=== PATIENT | male | born 1990 | race African-American/Black ===

== ENCOUNTER 2019-10-01 16:02 | Emergency (ER) | payer OTHER ==
--- NOTE | 2019-10-01 17:07 | ER ---
Nurse's Notes [facility] Name: Sreekanth Dodson Age: 29 yrs Sex: Male : 1990 Arrival Date: 10/01/2019 Time: 16:04 Bed 23 Private MD: Diagnosis: Acute upper respiratory infection, unspecified Presentation: 10/01 16:08 Presenting complaint: Patient states: Headache, cold sweats, body aches, sore throat, aj1 cough, congestion for the past couple days. Transition of care: patient was not received from another setting of care. Onset of symptoms was 2019. Risk Assessment: Do you want to hurt yourself or someone else? Patient reports no desire to harm self or others. Initial Sepsis Screen: Does the patient meet any 2 criteria? No. Patient's initial sepsis screen is negative. Does the patient have a suspected source of infection? Yes: Productive cough/pneumonia. Care prior to arrival: None. 16:08 Method Of Arrival: Ambulatory aj 16:08 Acuity: SABINA 4 aj1 Triage Assessment: 16:10 General: Appears in no apparent distress. comfortable, Behavior is calm, cooperative, aj1 appropriate for age. Pain: Complains of pain in forehead. Pain: Pain currently is 8 out of 10 on a pain scale. EENT: Reports nasal congestion nasal discharge. Neuro: Level of Consciousness is awake, alert, obeys commands. Cardiovascular: Patient's skin is warm and dry. Respiratory: Reports cough that is hacking, persistent Airway is patent Respiratory effort is even, unlabored, Respiratory pattern is regular, symmetrical. 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 - Social history:: Smoking status: Patient/guardian denies using tobacco. - Ebola Screening: : Patient denies travel to an Ebola-affected area in the 21 days before illness onset. Screenin:18 Abuse screen: Denies threats or abuse. Denies injuries from another. Nutritional mg2 screening: No deficits noted. Tuberculosis screening: No symptoms or risk factors identified. Fall Risk None identified. Assessment: 16:18 General: Appears in no apparent distress. comfortable, Behavior is calm, cooperative. mg2 Pain: Complains of pain in whole body. Neuro: Level of Consciousness is awake, alert, obeys commands, Oriented to person, place, time, situation. Cardiovascular: Capillary refill < 3 seconds Patient's skin is warm and dry. Respiratory: Airway is patent Respiratory effort is even, unlabored, Respiratory pattern is regular, symmetrical. Respiratory: Reports cough that is. GI: No signs and/or symptoms were reported involving the gastrointestinal system. : No signs and/or symptoms were reported regarding the genitourinary system. EENT: Reports nasal congestion. Derm: Skin is intact, is healthy with good turgor, Skin is pink, warm \T\ dry. normal. Musculoskeletal: Circulation, motion, and sensation intact. Capillary refill < 3 seconds. Vital Signs: 16:10 BP 141 / 90; Pulse 86; Resp 18; Temp 98.6; Pulse Ox 99% on R/A; Weight 106.59 kg (R); aj1 Height 6 ft. 1 in. (185.42 cm) (R); Pain 8/10; 17:10 BP 135 / 78; Pulse 80; Resp 18; Temp 98; Pulse Ox 100% on R/A; mg2 16:10 Body Mass Index 31.00 (106.59 kg, 185.42 cm) aj1 ED Course: 16:04 Patient arrived in ED. as 16:09 Triage completed. aj1 16:10 Arm band placed on Patient placed in an exam room. aj1 16:12 Robin Samayoa, RN is Primary Nurse. mg2 16:12 Keri Oseguera FNP-C is [facility]. kb 16:12 Srinivasan Monk MD is Attending Physician. kb 16:18 No provider procedures requiring assistance completed. Flu and/or RSV swab sent to lab. mg2 Patient did not have IV access during this emergency room visit. 16:19 Patient has correct armband on for positive identification. mg2 17:07 Throat Culture Sent. jp3 Administered Medications: No medications were administered Outcome: 17:06 Discharge ordered by . kb 17:33 Discharged to home ambulatory. mg2 17:33 Condition: good 17:33 Discharge instructions given to patient, Instructed on discharge instructions, follow up and referral plans. Demonstrated understanding of instructions, follow-up care. 17:33 Patient left the ED. mg2 Signatures: Keri Oseguera, FINESSE-C DISPATCHER SERVICE CHIEF-Mitra Infante RN RN aj1 Marilyn Jones Michele, RN RN mg2 Teddy Charles jp3
--- NOTE | 2019-10-01 17:07 | EDPHYS ---
Physician Documentation [facility] Name: Sreekanth Dodson Age: 29 yrs Sex: Male : 1990 Arrival Date: 10/01/2019 Time: 16:04 Bed 23 Private MD: ED Physician Srinivasan Monk HPI: 10/01 16:24 This 29 yrs old Black Male presents to ER via Ambulatory with complaints of Flu kb Symptoms. 16:24 The patient or guardian reports cough, that is intermittent, described as mild, with no kb sputum, flu symptoms, low-grade fever, myalgias. Onset: The symptoms/episode began/occurred 2 day(s) ago. Severity of symptoms: At their worst the symptoms were mild, moderate, in the emergency department the symptoms are unchanged. Modifying factors: The symptoms are alleviated by nothing, the symptoms are aggravated by nothing. Associated signs and symptoms: Pertinent positives: fever, rhinorrhea, sore throat. The patient has not experienced similar symptoms in the past. The patient has not recently seen a physician. 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 - Social history:: Smoking status: Patient/guardian denies using tobacco. - Ebola Screening: : Patient denies travel to an Ebola-affected area in the 21 days before illness onset. ROS: 16:23 Neck: Negative for injury, pain, and swelling, Cardiovascular: Negative for chest pain, kb palpitations, and edema, Abdomen/GI: Negative for abdominal pain, nausea, vomiting, diarrhea, and constipation, Back: Negative for injury and pain, MS/Extremity: Negative for injury and deformity, Skin: Negative for injury, rash, and discoloration. 16:23 Constitutional: Positive for body aches, chills, fatigue, fever, malaise. 16:23 ENT: Positive for rhinorrhea, sinus congestion, sore throat. 16:23 Respiratory: Positive for cough, Negative for dyspnea on exertion, hemoptysis, orthopnea, pleurisy, shortness of breath, sputum production, wheezing. 16:23 Neuro: Positive for headache. Exam: 16:23 Constitutional: This is a well developed, well nourished patient who is awake, alert, kb and in no acute distress. Head/Face: Normocephalic, atraumatic. ENT: Nares patent. No nasal discharge, no septal abnormalities noted. Tympanic membranes are normal and external auditory canals are clear. Oropharynx with no redness, swelling, or masses, exudates, or evidence of obstruction, uvula midline. Mucous membranes moist. Neck: Trachea midline, no thyromegaly or masses palpated, and no cervical lymphadenopathy. Supple, full range of motion without nuchal rigidity, or vertebral point tenderness. No Meningismus. Chest/axilla: Normal chest wall appearance and motion. Nontender with no deformity. No lesions are appreciated. Cardiovascular: Regular rate and rhythm with a normal S1 and S2. No gallops, murmurs, or rubs. Normal PMI, no JVD. No pulse deficits. Respiratory: Lungs have equal breath sounds bilaterally, clear to auscultation and percussion. No rales, rhonchi or wheezes noted. No increased work of breathing, no retractions or nasal flaring. Abdomen/GI: Soft, non-tender, with normal bowel sounds. No distension or tympany. No guarding or rebound. No evidence of tenderness throughout. Skin: Warm, dry with normal turgor. Normal color with no rashes, no lesions, and no evidence of cellulitis. MS/ Extremity: Pulses equal, no cyanosis. Neurovascular intact. Full, normal range of motion. Neuro: Awake and alert, GCS 15, oriented to person, place, time, and situation. Cranial nerves II-XII grossly intact. Motor strength 5/5 in all extremities. Sensory grossly intact. Cerebellar exam normal. Normal gait. Vital Signs: 16:10 BP 141 / 90; Pulse 86; Resp 18; Temp 98.6; Pulse Ox 99% on R/A; Weight 106.59 kg (R); aj1 Height 6 ft. 1 in. (185.42 cm) (R); Pain 8/10; 17:10 BP 135 / 78; Pulse 80; Resp 18; Temp 98; Pulse Ox 100% on R/A; mg2 16:10 Body Mass Index 31.00 (106.59 kg, 185.42 cm) aj1 MDM: 16:12 Patient medically screened. kb 16:23 Data reviewed: vital signs, nurses notes. Data interpreted: Pulse oximetry: on room air kb is 99 %. Interpretation: normal. 17:06 Counseling: I had a detailed discussion with the patient and/or guardian regarding: the kb historical points, exam findings, and any diagnostic results supporting the discharge/admit diagnosis, lab results, the need for outpatient follow up, a family practitioner, to return to the emergency department if symptoms worsen or persist or if there are any questions or concerns that arise at home. 10/01 16:12 Order name: Flu; Complete Time: 16:41 kb 10/01 16:41 Order name: Strep; Complete Time: 17:06 kb 10/01 17:06 Order name: Throat Culture EDMS Administered Medications: No medications were administered Disposition: 17:34 Co-signature as Attending Physician, Srinivasan Monk MD. rn Disposition: 10/01/19 17:06 Discharged to Home. Impression: Acute upper respiratory infection, unspecified. - Condition is Stable. - Discharge Instructions: Upper Respiratory Infection, Pediatric, Viral Respiratory Infection, [id number]. - Medication Reconciliation Form, Thank You Letter, Antibiotic Education, Prescription Opioid Use form. - Follow up: Emergency Department; When: As needed; Reason: Worsening of condition. Follow up: Private Physician; When: 2 - 3 days; Reason: Recheck today's complaints, Continuance of care, Re-evaluation by your physician. Signatures: Dispatcher [employer] EDMS Keri Oseguera, WILLIEC PROCESS COACH-Mitra Infante RN RN aj1 Srinivasan Monk MD MD rn Gardose, Michele, RN RN mg2 Corrections: (The following items were deleted from the chart) 17:33 17:06 10/01/2019 17:06 Discharged to Home. Impression: Acute upper respiratory mg2 infection, unspecified. Condition is Stable. Forms are Medication Reconciliation Form, Thank You Letter, Antibiotic Education, Prescription Opioid Use. Follow up: Emergency Department; When: As needed; Reason: Worsening of condition. Follow up: Private Physician; When: 2 - 3 days; Reason: Recheck today's complaints, Continuance of care, Re-evaluation by your physician. kb
[2019-10-01 18:30] VITALS: BP 135/78; TEMP 98; O2SAT 100
== END 2019-10-01 17:33 | disposition home or self-care (01) ==
LOC: ER 16:02
DX: J06.9 Acute upper respiratory infection, unspecified (principal); C95.01 Acute leukemia of unspecified cell type, in remission
CPT/HCPCS: 87070; 87081; 87804; 99283

== ENCOUNTER → 2023-12-04 | Emergency (ER) | payer BC ==
--- NOTE | 2023-12-04 18:22 | EDPHYS ---
Physician Documentation [facility] Name: Sreekanth Dodson Age: 33 yrs Sex: Male : 1990 Arrival Date: 12/04/2023 Time: 17:50 Bed IW1 Private MD: ED Physician Orion Frye HPI: 12/03 21:44 This 33 yrs old Black Male presents to ER via Ambulatory with complaints of Possible kb staph infection. 21:44 Patient is a 33-year-old male who came in to be tested for MRSA. States his 5-year-old kb recently developed a rash and fever, was taken to [facility] and his blood cultures grew MRSA so he was told he needed to get the rest of the family checked. Denies fever or illness. Reports small wounds to scalp and bilateral arms without redness swelling or drainage.. Historical: - Allergies: 18:33 No Known Allergies; aa5 - PMHx: 18:33 acute lymphoblastic leukemia- in remission; aa5 ROS: 21:43 Constitutional: As per HPI kb Exam: 21:43 Constitutional: This is a well developed, well nourished patient who is awake, alert, kb and in no acute distress. Head/Face: Normocephalic, atraumatic. ENT: Moist Mucous membranes Cardiovascular: Regular rate Respiratory: Respirations even and unlabored. No increased work of breathing. Talking in full sentences Abdomen/GI: Soft, non-tender. No distention MS/ Extremity: Pulses equal, no cyanosis. Neurovascular intact. Full, normal range of motion. Neuro: Awake and alert, GCS 15, oriented to person, place, time, and situation. Moves all extremities. Normal gait. 21:43 Skin: scabbed over wounds to scalp and bilateral arms. Vital Signs: 18:33 BP 130 / 88; Pulse 88; Resp 18 S; Temp 97.5(TE); Pulse Ox 99% on R/A; aa5 18:33 Weight 99.2 kg (M); aa5 MDM: 18:03 Patient medically screened. kb 21:43 Differential Diagnosis impetigo, skin infection. Data reviewed: vital signs, nurses kb notes. Counseling: I had a detailed discussion with the patient and/or guardian regarding the historical points, exam findings, and any diagnostic results supporting the discharge/admit diagnosis, the need for outpatient follow up, a family practitioner, to return to the emergency department if symptoms worsen or persist or if there are any questions or concerns that arise at home. Administered Medications: No medications were administered Disposition: 12/04 08:22 Co-signature as Attending Physician, Orion Frye MD I agree with the assessment and cp3 plan of care. Disposition Summary: 12/04/23 18:21 Discharge Ordered Notes: Location: Home kb Condition: Stable kb Diagnosis - Scalp Laceration/ Open wound of scalp kb Followup: kb - With: Emergency Department - When: As needed - Reason: Worsening of condition Followup: kb - With: Private Physician - When: 2 - 3 days - Reason: Recheck today's complaints, Continuance of care, Re-evaluation by your physician Discharge Instructions: - Discharge Summary Sheet kb - Wound Infection, [id number] kb - Wound Care, Adult kb Forms: - Medication Reconciliation Form kb - Thank You Letter kb - Antibiotic Education kb - Prescription Opioid Use kb - Patient Portal Instructions kb - Leadership Thank You Letter kb Prescriptions: - mupirocin 2 % Topical ointment - apply 1 application TOPICAL route 2 times per day; 1 unit; Refills: 0, Product kb Selection Permitted Signatures: Keri Oseguera, WILLIEC Orion Mckeon MD MD cp3 Yanira Carrillo, RN RN aa5
--- NOTE | 2023-12-04 18:48 | ER ---
Nurse's Notes [facility] Name: Sreekanth Dodson Age: 33 yrs Sex: Male : 1990 Arrival Date: 12/04/2023 Time: 17:50 Bed IW1 Private MD: Diagnosis: Scalp Laceration/ Open wound of scalp Presentation: 12/03 18:33 Chief complaint: Pt reports multiple sores to lydia arms, states "my son is in the [facility] with MRSA". 18:33 Coronavirus screen: At this time, the client does not indicate any symptoms associated [facility] with coronavirus-19. Ebola Screen: Patient denies travel to an Ebola-affected area in the 21 days before illness onset. Initial Sepsis Screen: Does the patient meet any 2 criteria? No. Patient's initial sepsis screen is negative. Does the patient have a suspected source of infection? No. Patient's initial sepsis screen is negative. Risk Assessment: Do you want to hurt yourself or someone else? Patient reports no desire to harm self or others. Onset of symptoms was November 2023. 18:33 Acuity: SABINA 5 aa5 18:33 Method Of Arrival: Ambulatory aa5 Triage Assessment: 18:33 General: Appears comfortable, Behavior is calm, cooperative. Pain: Denies pain. Neuro: aa5 Level of Consciousness is awake, alert, obeys commands, Oriented to person, place, time, situation. Respiratory: Airway is patent Respiratory effort is even, unlabored, Respiratory pattern is regular, symmetrical. Derm: Skin is dry, Skin is normal, Skin temperature is warm. Historical: - Allergies: 18:33 No Known Allergies; aa5 - PMHx: 18:33 acute lymphoblastic leukemia- in remission; aa5 Vital Signs: 18:33 BP 130 / 88; Pulse 88; Resp 18 S; Temp 97.5(TE); Pulse Ox 99% on R/A; aa5 18:33 Weight 99.2 kg (M); aa5 ED Course: 18:00 Patient arrived in ED. mg5 18:02 K[facility]gu[facility] F[facility]-C [facility]. kb 18:02 Orion Frye MD is Attending Physician. kb 18:33 Arm band placed on. aa5 18:40 No provider procedures requiring assistance completed. Patient did not have IV access aa5 during this emergency room visit. 18:50 Triage completed. aa5 Administered Medications: No medications were administered Outcome: 18:21 Discharge ordered by . yessenia 18:40 Discharged to home ambulatory, aa5 18:40 Condition: stable 18:40 Discharge instructions given to patient, Instructed on discharge instructions, follow up and referral plans. medication usage, Demonstrated understanding of instructions, follow-up care, medications, Prescriptions given X 1, 18:47 Patient left the ED. aa5 Signatures: Keri Oseguera FNP-C FNP-Yanira Mckeon, RN RN aa5 Ingrid Kriby mg5
[2023-12-04 19:47] VITALS: BP 130/88; TEMP 97.5; O2SAT 99
== END ==
LOC: ER 17:50
DX: S01.01XA Laceration without foreign body of scalp, initial encounter (principal)
CPT/HCPCS: 99283

== ENCOUNTER 2024-05-30 06:42 | Emergency (ER) | payer BC ==
--- OUTSIDE RECORDS SUMMARY | 2024-05-30 06:46 | XMS REPORT | Continuity of Care Document ---
Author Name Unknown Address [address] [place] [address]. [address] [place] [address] [facility] [address] [facility] [address] [place] [address] Care Team Providers Care Ethics Manager Name Role Phone [phone] Primary Care Physician Unavailab le Allergies, Adverse Reactions, Alerts Allergy Name Allergy Type Status Severity Reaction(s) Onset Date Inactive Date Treating Clinician Comments Source NO KNOWN DRUG ALLERGIE S Drug Class Active 12-29 00:00: 00 MD Maki disla NO KNOWN DRUG ALLERGIE S Drug Class Active 12-29 00:00: 00 MD Maki disla
[2024-05-30 07:57] LABS: Absolute Lymphocytes (CBC) 1.1 K/uL (0.7-4.9); Absolute Monocytes 0.7 K/uL (0.1-1.3); Absolute Neutrophil 6.7 K/uL (1.8-8.0); Basophils % 0.2 % (0-1.3); Eosinophils % 0.1 % (0-4.4); Hematocrit 40.4 % (39.6-49.0); Hemoglobin 13.8 g/dL (13.6-17.9); Lymphocytes % 13.2 % (15.3-44.8); MCH 34.3 pg (27.0-35.0); MCHC 34.2 g/dL (32.0-36.0); MCV 100.4 fL (80-100); MPV 7.4 fL (7.6-11.3); Monocytes % 7.7 % (3.3-12.3); Neutrophils % 78.8 % (41.7-73.7); Platelets 209 thou/uL (152-406); RBC Red Blood Cell Count 4.02 M/uL (4.33-5.43); Red Cell Distribution Width 12.4 % (12.1-15.2)
[2024-05-30 08:12] LABS: Albumin 3.5 g/dL (3.4-5.0); Albumin/Globulin Ratio 0.8 (1.1-1.8); Anion Gap 8.7 mEq/L (5.0-15.0); Globulin 4.5 g/dL (2.3-3.5); Potassium 3.7 mEq/L (3.5-5.1)
[2024-05-30 08:25] LABS: SARS-CoV-2 Antigen CONTROL BLUE LINE VIS/BG OK; SARS-CoV-2 Antigen Rapid Res Negative (Negative)
--- NOTE | 2024-05-30 08:27 | RAD REPORT ---
EXAM DESCRIPTION: Gonzalo Single View05/30/2024 7:56 am CLINICAL HISTORY: Congestion COMPARISON: 2022 FINDINGS: The lungs appear clear of acute infiltrate. The heart is mildly enlarged IMPRESSION: No acute abnormalities displayed
--- NOTE | 2024-05-30 08:45 | EDPHYS ---
Physician Documentation [facility] Name: Sreekanth Dodson Age: 34 yrs Sex: Male : 1990 Arrival Date: 05/30/2024 Time: 06:42 Bed 6 Private MD: ED Physician Anastacio Collins HPI: 05/30 07:23 This 34 yrs old Black Male presents to ER via Ambulatory with complaints of Flu sp3 Symptoms, Congestion, Sore Throat. 07:23 34-year-old male with a history of a LL with no evidence of disease for 10 years sp3 formally treated at [facility] now presents to the ED with chief complaint body aches, subjective fever, dry cough and "bone pain". Patient denies any production on cough, chest pain, back pain, abdominal pain, nausea, vomiting, diarrhea, known sick contacts, travel history, prolonged immobilization, or any other signs or symptoms on ROS at this time. He also endorses no weight loss or night sweats.. 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 - Infectious Disease History:: Denies. - Social history:: Smoking status: Patient denies any tobacco usage or history of. ROS: 07:25 Eyes: Negative for injury, pain, redness, and discharge, Neck: Negative for injury, sp3 pain, and swelling, Cardiovascular: Negative for chest pain, palpitations, and edema, Abdomen/GI: Negative for abdominal pain, nausea, vomiting, diarrhea, and constipation, Back: Negative for injury and pain, MS/Extremity: Negative for injury and deformity, Skin: Negative for injury, rash, and discoloration, Neuro: Negative for headache, weakness, numbness, tingling, and seizure, Psych: Negative for depression, anxiety, suicide ideation, homicidal ideation, and hallucinations, Endocrine: Negative for neck swelling, polydipsia, polyuria, polyphagia, and marked weight changes, 07:25 All other systems are negative, Exam: 07:25 Constitutional: This is a well developed, well nourished patient who is awake, alert, sp3 and in no acute distress. Head/Face: Normocephalic, atraumatic. Eyes: Pupils equal round and reactive to light, extra-ocular motions intact. Lids and lashes normal. Conjunctiva and sclera are non-icteric and not injected. Cornea within normal limits. Periorbital areas with no swelling, redness, or edema. ENT: Nares patent. No nasal discharge, no septal abnormalities noted. External auditory canals are clear. Oropharynx with no redness, swelling, or masses, exudates, or evidence of obstruction, uvula midline. Mucous membranes moist. Neck: Trachea midline, no thyromegaly or masses palpated, and no cervical lymphadenopathy. Supple, full range of motion without nuchal rigidity, or vertebral point tenderness. No Meningismus. Chest/axilla: Normal chest wall appearance and motion. Nontender with no deformity. No lesions are appreciated. Cardiovascular: Regular rate and rhythm with a normal S1 and S2. No gallops, murmurs, or rubs. Normal PMI, no JVD. No pulse deficits. Respiratory: Lungs have equal breath sounds bilaterally, clear to auscultation and percussion. No rales, rhonchi or wheezes noted. No increased work of breathing, no retractions or nasal flaring. Abdomen/GI: Soft, non-tender, with normal bowel sounds. No distension or tympany. No guarding or rebound. No evidence of tenderness throughout. Back: No spinal tenderness. No costovertebral tenderness. Full range of motion. Skin: Warm, dry with normal turgor. Normal color with no rashes, no lesions, and no evidence of cellulitis. MS/ Extremity: Pulses equal, no cyanosis. Neurovascular intact. Full, normal range of motion. Neuro: Awake and alert, GCS 15, oriented to person, place, time, and situation. Cranial nerves II-XII grossly intact. Motor strength 5/5 in all extremities. Sensory grossly intact. Cerebellar exam normal. Normal gait. Psych: Awake, alert, with orientation to person, place and time. Behavior, mood, and affect are within normal limits. Vital Signs: 06:58 BP 134 / 81; Pulse 88; Resp 16; Temp 98.2; Pulse Ox 99% on R/A; Weight 97.52 kg; Height ss 6 ft. 0 in. ; Pain 9/10; 07:54 BP 121 / 79; Pulse 84; Resp 16; Pulse Ox 100% ; dd2 08:57 BP 126 / 75; Pulse 80; Resp 16; Temp 98.3(O); Pulse Ox 99% ; dd2 06:58 Body Mass Index 29.16 (97.52 kg, 182.88 cm) ss 06:58 Pain Scale: Adult ss MDM: 07:04 Patient medically screened. sp3 07:25 Data reviewed: vital signs, nurses notes, lab test result(s), radiologic studies. ED sp3 course: 34-year-old male with history available now with viral upper respiratory infection type symptoms. Differential diagnosis includes viral illness, bronchitis, bacterial pneumonia, COVID-19, influenza, and to a lesser degree recurrence of leukemia. Given this broad differential including his ALL history, workup will include swabs, chest x-ray and laboratory values including CBC and CRP. Disposition probable discharge with antibiotics to cover secondary infection versus antibiotics to cover primary infection. Consider antiviral agent if swabs are positive.. 08:44 ED course: Full workup negative including chest x-ray. No leukocytosis noted given sp3 history. Will place on Levaquin p.o. and discharged home with PCP follow-up.. 05/30 06:54 Order name: Strep ec2 05/30 06:54 Order name: Influenza Screen (a \\T\\ B); Complete Time: 08:27 ec2 05/30 06:54 Order name: SARS RAPID; Complete Time: 08:27 ec2 05/30 07:22 Order name: CBC with Diff; Complete Time: 08:03 sp3 05/30 07:22 Order name: CMP; Complete Time: 08:27 sp3 05/30 07:22 Order name: Lipase; Complete Time: 08:27 sp3 05/30 07:22 Order name: CRP; Complete Time: 08:27 sp3 05/30 08:32 Order name: Throat Culture EDNH 05/30 07:05 Order name: CXR XRAY; Complete Time: 08:43 sp3 05/30 07:22 Order name: IV Saline Lock; Complete Time: 07:48 sp3 05/30 07:22 Order name: Labs collected and sent; Complete Time: 07:48 sp3 Administered Medications: No medications were administered Disposition Summary: 05/30/24 08:44 Discharge Ordered Notes: Location: Home sp3 Condition: Stable sp3 Diagnosis - Viral syndrome, prophylaxis for secondary bacterial infection given leukemia historysp3 Followup: sp3 - With: Private Physician - When: Upon discharge from the Emergency Department - Reason: Continuance of care Discharge Instructions: - Discharge Summary Sheet sp3 - Viral Illness, Adult sp3 Forms: - Medication Reconciliation Form sp3 - Antibiotic Education sp3 - Prescription Opioid Use sp3 - Patient Portal Instructions sp3 - Leadership Thank You Letter sp3 - Work release form dd2 Prescriptions: - levofloxacin 500 mg Oral tablet - take 1 tablet ORAL route once daily for 7 days; 7 tablet; Refills: 0, Product sp3 Selection Permitted Signatures: Dispatcher [employer] EDMS Lisa Haile RN RN ss Anastacio Collins MD MD sp3 Corrections: (The following items were deleted from the chart) 06:54 06:54 Influenza Screen (A \\T\\ B)+BA.LAB.BRZ ordered. EDMS EDMS 06:54 06:54 SARS-COV-2 Antigen Rapid+I.LAB.BRZ ordered. EDMS EDMS 06:54 06:54 Group A Streptococcus Rapid Sc+BA.LAB.BRZ ordered. EDMS EDMS 07:05 07:05 Chest Single View+RAD.RAD.BRZ ordered. EDMS EDMS 07:23 07:23 CBC+H.LAB.BRZ ordered. EDMS EDMS 07:23 07:23 COMPREHENSIVE METABOLIC PANEL+C.LAB.BRZ ordered. EDMS EDMS 07:23 07:23 LIPASE+C.LAB.BRZ ordered. EDMS EDMS 07:23 07:23 BLOOD CULTURE*+BA.LAB.BRZ ordered. EDMS EDMS 07:23 07:23 C-REACTIVE PROTEIN+C.LAB.BRZ ordered. EDMS EDMS
--- NOTE | 2024-05-30 08:45 | ER ---
Nurse's Notes [facility] Name: Sreekanth Dodson Age: 34 yrs Sex: Male : 1990 Arrival Date: 05/30/2024 Time: 06:42 Bed 6 Private MD: Diagnosis: Viral syndrome, prophylaxis for secondary bacterial infection given leukemia history Presentation: 05/30 06:58 Chief complaint: Patient states: chills, fatigue sore throat and body aches that began ss Chan night. Coronavirus screen: Client denies travel out of the [place] in the last 14 days. Ebola Screen: Patient denies exposure to infectious person. Patient denies travel to an Ebola-affected area in the 21 days before illness onset. Initial Sepsis Screen: Does the patient meet any 2 criteria? No. Patient's initial sepsis screen is negative. Does the patient have a suspected source of infection? No. Patient's initial sepsis screen is negative. Risk Assessment: Do you want to hurt yourself or someone else? Patient reports no desire to harm self or others. Onset of symptoms was May 26, 2024. 06:58 Method Of Arrival: Ambulatory ss 06:58 Acuity: SABINA 4 ss 07:36 Acuity: SABINA 3 iw Triage Assessment: 07:02 General: Appears in no apparent distress. comfortable, Behavior is calm, cooperative. ss Neuro: Level of Consciousness is awake, alert, obeys commands. Respiratory: Airway is patent Respiratory effort is even, unlabored, Respiratory pattern is regular, symmetrical. Derm: Skin is pink, warm \T\ dry. normal. 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 - Infectious Disease History:: Denies. - Social history:: Smoking status: Patient denies any tobacco usage or history of. Screenin:54 [facility] ED Fall Risk Assessment (Adult) History of falling in the last 3 months, dd2 including since admission No falls in past 3 months (0 pts) Confusion or Disorientation No (0 pts) Intoxicated or Sedated No (0 pts) Impaired Gait No (0 pts) Mobility Assist Device Used No (0 pt) Altered Elimination No (0 pt) Score/Fall Risk Level 0 - 2 = Low Risk Oriented to surroundings, Maintained a safe environment, Hourly rounding (assess needs \T\ fall precautionary measures) done. Abuse screen: Denies threats or abuse. Nutritional screening: No deficits noted. Tuberculosis screening: No symptoms or risk factors identified. Assessment: 07:54 General: Appears in no apparent distress. Behavior is calm, cooperative, appropriate dd2 for age. Pain: Complains of pain in Throat Pain currently is 4 out of 10 on a pain scale. Pain began 2-3 days ago. Neuro: No deficits noted. Level of Consciousness is awake, alert, obeys commands, Oriented to person, place, time, situation, Appropriate for age Moves all extremities. Cardiovascular: No deficits noted. Patient's skin is warm and dry. Respiratory: Reports cough that is dry, congestion Airway is patent Respiratory effort is even, unlabored, Respiratory pattern is regular, symmetrical, Breath sounds are clear bilaterally. GI: No deficits noted. No signs and/or symptoms were reported involving the gastrointestinal system. : No deficits noted. No signs and/or symptoms were reported regarding the genitourinary system. EENT: Throat is reddened has patchy exudate Reports difficulty swallowing since Wednesday nasal congestion since Wednesday nasal discharge that is watery. Derm: No deficits noted. No signs and/or symptoms reported regarding the dermatologic system. Musculoskeletal: No deficits noted. No signs and/or symptoms reported regarding the musculoskeletal system. Vital Signs: 06:58 BP 134 / 81; Pulse 88; Resp 16; Temp 98.2; Pulse Ox 99% on R/A; Weight 97.52 kg; Height ss 6 ft. 0 in. ; Pain 9/10; 07:54 BP 121 / 79; Pulse 84; Resp 16; Pulse Ox 100% ; dd2 08:57 BP 126 / 75; Pulse 80; Resp 16; Temp 98.3(O); Pulse Ox 99% ; dd2 06:58 Body Mass Index 29.16 (97.52 kg, 182.88 cm) 06:58 Pain Scale: Adult ss ED Course: 06:48 Patient arrived in ED. gm2 07:02 Triage completed. ss 07:02 Arm band placed on right wrist. ss 07:03 YAYA GA RN is Primary Nurse. dd2 07:04 Anastacio Collins MD is Attending Physician. sp3 07:45 Initial lab(s) drawn, by me, sent to lab. First set of blood cultures drawn COVID swab dd2 sent to lab. Flu and/or RSV swab sent to lab. Strep swab sent to lab. 07:48 CRP Sent. dd2 07:48 Blood Culture Adult (2) Sent. dd2 07:48 CBC with Diff Sent. dd2 07:48 CMP Sent. dd2 07:48 Lipase Sent. dd2 07:48 Strep Sent. dd2 07:48 SARS RAPID Sent. dd2 07:48 Influenza Screen (a \T\ B) Sent. dd2 07:48 Inserted saline lock: 22 gauge in right hand, using aseptic technique. Blood collected. dd2 Flushed with 10 mL NS Missed attempt(s): 20 gauge in right antecubital area. Bleeding controlled, band aid applied, catheter tip intact. 07:54 Patient has correct armband on for positive identification. Bed in low position. Call dd2 light in reach. Side rails up X 1. Provided Education on: Call light, labs, procedures. Client placed on continuous cardiac and pulse oximetry monitoring. NIBP monitoring applied. Door closed. Warm blanket given. Pillow given. 07:54 No provider procedures requiring assistance completed. dd2 07:58 CXR XRAY In Process Unspecified. EDMS 08:57 IV discontinued, intact, bleeding controlled, No redness/swelling at site. Pressure dd2 dressing applied. Administered Medications: No medications were administered Medication: 07:54 VIS not applicable for this client. dd2 Outcome: 08:44 Discharge ordered by . sp3 08:57 Discharged to home ambulatory, dd2 08:57 Condition: stable 08:57 Discharge instructions given to patient, Instructed on discharge instructions, follow up and referral plans. medication usage, Demonstrated understanding of instructions, follow-up care, medications, Prescriptions given X 1, 08:58 Patient left the ED. dd2 Signatures: Dispatcher [employer] EDMS Gema Harden RN RN Lisa Haile RN RN Anastacio Collins MD MD sp3 Stephanie Cullen gm2 YAYA GA RN RN dd2
[2024-05-30 09:07] VITALS: BP 126/75; TEMP 98.3; O2SAT 99
== END 2024-05-30 08:58 | disposition home or self-care (01) ==
LOC: ER 06:42
DX: B34.9 Viral infection, unspecified (principal); Z85.6 Personal history of leukemia; Z11.52 Encounter for screening for COVID-19
CPT/HCPCS: 36415; 71045; 80053; 83690; 85025; 86140; 87070; 87081; 87804; 87811; 99284